=== PATIENT | female | born 2005 | race Caucasian/White ===

== ENCOUNTER 2024-04-09 18:56 | Emergency (ER) | payer MEDICAID, SELFPAY ==
[2024-04-09 19:48] VITALS: BP 137/81; PULSE 75; RESP 16; TEMP 36.8; O2SAT 97
[2024-04-09 19:51] VITALS: BMI 32.1
--- NOTE | 2024-04-09 19:51 | XR_ITS ---
Examination: Pelvic ultrasound, transabdominal, complete Technique: Transabdominal ultrasound of the pelvis performed using grayscale imaging Date and time of exam: April 09, 2024 2043 hrs. Indications: Status post miscarriage 2 weeks ago followed by pelvic pain and pressure Findings: Uterus 7.0 x 4.0 x 5.3 cm Endometrial stripe 0.6 cm No intrauterine gestation No uterine mass Moderate free fluid in the cul-de-sac and surrounding the uterus Right ovary 4.3 x 3.2 x 3.7 cm arterial flow 16 mm follicular cyst Left ovary 2.7 x 2.1 x 1.9 cm arterial flow Impression: No uterine mass or intrauterine gestation No retained product of conception Moderate free fluid in the cul-de-sac and surrounding the uterus, clinical correlation advised
--- NOTE | 2024-04-09 19:52 | PD.EDRME ---
Rapid Medical Screening Exam RME Arrival date/time: 04/09/24 18:56 18-year-old female presents emergency department complaining of diffuse lower abdominal pain and vaginal bleeding after having miscarriage 2 weeks ago. Chief Complaint: Abdominal Pain Time Seen by Provider: 04/09/24 19:34 Vital signs: Vital Signs Temperature 98.2 F 04/09/24 19:48 Pulse Rate 75 04/09/24 19:48 Respiratory Rate 16 04/09/24 19:48 Blood Pressure 137/81 H 04/09/24 19:48 Pulse Oximetry (%) 97 04/09/24 19:48 Oxygen Delivery Method Room Air 04/09/24 19:48 Vital signs reviewed by provider: Yes
[2024-04-09 21:03] LABS: Basophils % (Auto) 0 % (0-2.5); Eosinophils # (Auto) 0.1 Thou/mm3 (0.0-0.5); Eosinophils % (Auto) 1 % (0-10); Hematocrit 37.2 % (36.0-46.0); Immature Granulocytes % (Auto) 1 % (0-0); Immature Granulocytes Auto 0.05 Thou/mm3 (0.00-0.00); Lymphocytes # (Auto) 1.9 Thou/mm3 (1.0-4.8); Lymphocytes % (Auto) 21 % (10-50); Mean Corpuscular HGB Conc 32.3 g/dl (31.0-37.0); Mean Corpuscular Hemoglobin 28.3 pg (25.0-35.0); Mean Corpuscular Volume 88 fL (80-100); Monocytes # (Auto) 0.5 Thou/mm3 (0.0-0.8); Monocytes % (Auto) 5 % (0-12); Neutrophils # (Auto) 6.8 Thou/mm3 (1.8-7.7); Neutrophils % (Auto) 73 % (37-80); Nucleated Red Blood Cell % 0 /100 WBC (0); Platelet Count 360 Thou/mm3 (140-440); RDW Standard Deviation 42.9 fL (36.4-46.3); Red Blood Count 4.24 Miln/mm3 (4.00-5.20); White Blood Count 9.3 Thou/mm3 (4.5-11.0)
[2024-04-09 21:04] LABS: Collection Type, Urine Clean Catch
[2024-04-09 21:20] LABS: Bacteria,Urine Rare; Bilirubin,Urine Negative (Negative); Blood,Urine 3+ (Negative); Clarity,Urine Turbid (Clear/Hazy); Color,Urine Yellow (Lt Yel-Yel); Culture Indicated,Urine Contaminated; Glucose, Urine Negative (Negative); Hyaline Casts,Urine < 1 /hpf (0-1); Ketones,Urine Negative (Negative); Leukocyte Esterase,Urine Positive (Negative); Nitrite,Urine Negative (Negative); PH,Urine 7.5 (5.0-7.0); Protein,Urine 1+ (Neg - Trace); RBC,Urine 25 /hpf (0-3); Specific Gravity,Urine 1.026 (1.001-1.035); Squamous Epithelial Cell,Urine 15 /hpf (0-5); WBC,Urine 13 /hpf (0-5)
[2024-04-09 21:22] LABS: HCG,Qualitative Serum Positive
[2024-04-09 21:34] LABS: Alanine Aminotransferase 27 U/L (10-49); Albumin, Serum 4.8 gm/dL (3.5-5.0); Albumin/Globulin Ratio 1.5 (1.2-2.2); Alkaline Phosphatase 72 U/L (46-116); Anion Gap 8 (7-16); Aspartate Amino Transferase < 8 U/L (0-34); BUN/Creatinine Ratio 14 Ratio (12-20); Bilirubin,Total 0.6 mg/dL (0.3-1.2); Blood Urea Nitrogen 11 mg/dL (9-23); Calcium 9.3 mg/dL (8.3-10.6); Calcium (Corrected) 9.3 mg/dL (8.5-10.1); Carbon Dioxide 26.4 mMol/L (20.0-31.0); Chloride 104 mMol/L (98-107); Creatinine (Component) 0.8 mg/dL (0.6-1.3); Estimated Creatinine Clearance 131.3 mL/min (>60); Globulin 3.1 gm/dL (2.3-3.5); Glucose 87 mg/dL (74-106); Osmolality,Calculated 274 (275-295); Sodium 138 mMol/L (136-145); Total Protein 7.9 gm/dL (5.7-8.2); eGFR > 60 See Note
[2024-04-09 22:47] LABS: Beta HCG,Quantitative 19 mIU/mL (<5.0)
--- NOTE | 2024-04-09 23:10 | EDNOTE_ITS ---
ED Abdominal Pain RME/HPI General Chief Complaint: Abdominal Pain Stated complaint: ABDOMINAL PAIN Time seen by provider: 04/09/24 19:34 Arrival date/time: 04/09/24 18:56 18-year-old female presents emergency department complaining of diffuse lower abdominal pain and vaginal bleeding after having miscarriage 2 weeks ago. Patient report a2. Patient Nuys any fever, chills, nausea vomiting, dysuria, flank pain, or any other associated symptom. Source: patient Mode of arrival: ambulatory Limitations: no limitations RME / HPI RME / HPI narrative: 04/09/24 18:56 18-year-old female presents emergency department complaining of diffuse lower abdominal pain and vaginal bleeding after having miscarriage 2 weeks ago. Related Data Allergies Allergy/AdvReac Type Severity Reaction Status Date / Time No Known Allergies Allergy Verified 04/09/24 19:01 Review of Systems Review of Systems Systems Reviewed: All systems reviewed, normal except as documented Constitutional Constitutional: Reports system reviewed and no additional complaints, except as documented, Denies body ache(s), Denies chills and Denies fever(s) Eyes Eyes: Reports system reviewed and no additional complaints, except as documented and Denies change in vision ENT Ears, Nose, Mouth, and Throat: Reports system reviewed and no additional complaints, except as documented, Denies disequilibrium, Denies dizziness, Denies sore throat and Denies vertigo Cardiovascular Cardiovascular: Reports system reviewed and no additional complaints, except as documented, Denies chest pain and Denies dyspnea Respiratory Respiratory: Reports system reviewed and no additional complaints, except as documented, Denies chest congestion, Denies cough and Denies dyspnea Gastrointestinal Gastrointestinal: Reports system reviewed and no additional complaints, except as documented, Reports abdominal pain, Denies nausea and Denies vomiting Genitourinary Genitourinary: Reports abnormal vaginal bleeding Musculoskeletal Musculoskeletal: Reports system reviewed and no additional complaints, except as documented, Denies abnormal gait and Denies arthralgias Integumentary/Breasts Skin/Breast: Reports system reviewed and no additional complaints, except as documented, Denies erythema, Denies rash and Denies wounds Neurologic Neurologic: Reports system reviewed and no additional complaints, except as documented, Denies abnormal gait, Denies disequilibrium, Denies dizziness and Denies vertigo Past Medical History Social History SMOKING STATUS: Never smoker ED Exam General Limitations: Present no limitations General appearance: Present alert and in no apparent distress Head Head exam: Present atraumatic Eye Eye exam: Present normal appearance, PERRL and EOMI ENT ENT exam: Present normal exam, normal oropharynx and mucous membranes moist Neck Neck exam: Present normal inspection, full ROM and trachea midline Chest Chest inspection: Present normal inspection and symmetric chest wall rise Respiratory Respiratory exam: Present normal lung sounds bilaterally Cardiovascular Cardiovascular exam: Present regular rate, normal rhythm and normal heart sounds Abdominal Exam Abdominal exam: Present soft and normal bowel sounds Extremities Exam Extremities exam: Present normal inspection and full ROM Back Exam Back exam: Present normal inspection and full ROM Neurological Exam Neurological exam: Present alert, oriented X3 and CN II-XII intact Psychiatric Psychiatric exam: Present normal affect and normal mood Skin Skin exam: Present warm, dry, intact and normal color Course Quality Measures none Orders Category Date Time Status US pelvic complete Stat Exams 04/09/24 19:51 Completed Beta HCG,Quantitative Stat Lab 04/09/24 20:23 Completed CBC Stat Lab 04/09/24 20:23 Completed CMP [Comprehensive Metabolic Panel] Stat Lab 04/09/24 20:23 Completed HCG,Qualitative Serum Stat Lab 04/09/24 20:23 Completed Urinalysis, C/S if Indicated Stat Lab 04/09/24 20:50 Completed Vital Signs Vital signs: Vital Signs Temperature 98.2 F 04/09/24 19:48 Pulse Rate 75 04/09/24 19:48 Respiratory Rate 16 04/09/24 19:48 Blood Pressure 137/81 H 04/09/24 19:48 Pulse Oximetry (%) 97 04/09/24 19:48 Oxygen Delivery Method Room Air 04/09/24 19:48 97% room air within normal limits Abdominal Pain MDM MDM Narrative MDM Narrative:: 18-year-old female presents emergency department complaining of diffuse lower abdominal pain and vaginal bleeding after having miscarriage 2 weeks ago. Patient report a2. Patient Nuys any fever, chills, nausea vomiting, dysuria, flank pain, or any other associated symptom. CBC unremarkable for any leukocytosis. hemoglobin 12.0. CMP was unremarkable for any elevated LFTs or gross electrolyte abnormalities. Beta-hCG 19. Pelvic ultrasound findings no uterine mass or intrauterine gestation, no retained products of conception, with moderate free fluid in cul-de-sac surrounding the uterus. Patient appears nontoxic and is hemodynamically stable. Patient's abdomen is soft and nontender. Patient discharged and instructed to have close follow-up with [facility] and request repeat pelvic ultrasound and beta-hCG trend. Instructed to return to emergency department for any worsening symptoms or as needed. Patient data External records reviewed:: None Clinical information provided by:: patient Social determinants that could affect healthcare access:: none Patient has the following chronic illnesses:: None How is presenting disease/condition affected by chronic disease/condition?: no chronic disease Evaluation data The following diagnostics were reviewed and interpreted by me:: lab results and radiology exam(s) Lab and/or radiology exams considered but not ordered:: Ordered Interpretation Summary: Interpreted by me Medications / Prescriptions Medications or Prescriptions considered but not ordered:: N/A Medication administrations:: N/A Consultations Consultation(s) initiated? (list below): No Diagnosis Differential diagnosis abdominal pain: abdominal pain, acute appendicitis, calculus of kidney, constipation, diverticulitis, endometriosis, gastroenteritis, pancreatitis and small bowel obstruction Most likely diagnosis given after review of the tests above:: Abdominal pain Admission Indicated Admission indicated?: not indicated Admission Request Was there a request for admission?: No Disposition Plan Disposition Plan: Discharge Discharge Attestation Discharge Attestation: The patient and all family members were given an opportunity to ask questions and understood the discharge instructions. Discharge instructions specifically effects, indications for sooner follow up or return to the emergency department, and the expected course of current diagnosis. Patient condition: Stable Discharge Plan Plan Patient Disposition: HOME (Self Care) Disposition Comment: Stable Prescriptions/Referrals Referrals: No Primary/Family,Physician [Primary Care Provider] - In 1 week Problem List Clinical Impression: Abdominal pain Patient/Caregiver Discharge Instructions Discharge Activity: activity as tolerated Education Materials: Abdominal Pain Additional Instructions: test positive. Follow-up with [facility] and request repeat ultrasound and beta hCG trend which was 19 today. Return to emergency department for any worsening symptoms or as needed. Print Language: [place] Stand Alone Forms: Fabiana Award Info., Patient Portal Info Letter PA/KANDY Supervising Physician KENDRA/KANDY Supervising Physician: Dr. Kate
== END 2024-04-09 23:45 | disposition home or self-care (01) ==
PROVIDERS: Emergency Provider Emergency Medicine
DX: R10.30 Lower abdominal pain, unspecified (principal); Z32.01 Encounter for pregnancy test, result positive
CPT/HCPCS: 36415; 76856; 80053; 81001; 84702; 84703; 85025; 99284